=== PATIENT | female | born 1985 | race Caucasian/White ===

== ENCOUNTER 2020-07-27 14:38 | Outpatient (CLI) | payer OTHER ==
[2020-07-28 01:49] LABS: SARS-CoV-2 PCR by NAA Not Detected (NotDetected)
== END 2020-07-27 14:39 | disposition home or self-care (01) ==
LOC: CSHLAB 14:38
PROVIDERS: ATTEND Obstetrics & Gynecology
DX: Z20.822 Contact with and (suspected) exposure to COVID-19 (principal)
CPT/HCPCS: 87635; U0003; U0005

== ENCOUNTER 2020-07-28 05:28 | Observation (INO) | payer OTHER ==
[2020-07-28] MEDS ORDERED: Acetaminophen 500 MG TAB PO PRN (05:46)
[2020-07-28] MEDS ORDERED: HYDROcodone/Acetaminophen 5/325 mg Tablet PO PRN ×2 (05:46)
[2020-07-28] MEDS ORDERED: Lidocaine 1% (PF) 30 ML VIAL SC PRN (05:46)
[2020-07-28] MEDS ORDERED: Promethazine HCl 25 MG/ML VIAL IM PRN (05:46)
[2020-07-28] MEDS ORDERED: Ibuprofen 800 MG TAB PO PRN (05:46)
[2020-07-28] MEDS ORDERED: Ondansetron PF 4 MG/2 ML Vial IVP PRN (05:46)
[2020-07-28 06:03] VITALS: BMI 29.2
[2020-07-28] MEDS ORDERED: NS w/ Oxytocin 30 units 500 ML IVPB PRN (06:11)
[2020-07-28 07:02] LABS: Hemoglobin 11.4 g/dL (12.0-15.5); Mean Corpuscular HGB CONC 35.1 g/dL (32.0-36.0); Mean Corpuscular Hemoglobin 32.2 pg (27.0-33.0); Mean Corpuscular Volume 91.8 fl (81.6-98.3); Mean Platelet Volume 9.6 fl (7.4-10.4); Platelet Count 215 10x3/uL (150-450); RBC Distribution Width 13.1 % (11.5-14.5); Red Blood Cell (RBC) Count 3.54 10x6/uL (3.90-5.03); White Blood Cell (WBC) Count 7.4 10x3/uL (3.5-10.5)
[2020-07-28] MEDS: Misoprostol 200 MCG TAB VAG SCH ×3 (07:52→14:28)
[2020-07-28] MEDS: Butorphanol Tartrate 1 MG/ML VIAL SLOW IVP PRN ×2 (13:15→15:02)
[2020-07-28] MEDS ORDERED: Misoprostol 200 MCG TAB ONE (14:16)
== END 2020-07-28 20:43 | disposition home or self-care (01) ==
LOC: INTOOBSV 05:28 → CSHLD 05:28
PROVIDERS: ADMIT Obstetrics & Gynecology; ATTEND Obstetrics & Gynecology
DX: O02.1 Missed abortion (principal); Z3A.15 15 weeks gestation of pregnancy
CPT/HCPCS: 85027; 86850; 86900; 86901; 88300; 88305; 96374; 96375; G0378; J0595; J2590

== ENCOUNTER 2021-08-27 12:22 | Outpatient (CLI) | payer BC ==
[2021-08-28 12:35] LABS: SARS-CoV-2 PCR by NAA Not Detected (NotDetected)
== END 2021-08-27 12:23 | disposition home or self-care (01) ==
LOC: CSHLAB 12:22
PROVIDERS: ATTEND Obstetrics & Gynecology
DX: Z20.822 Contact with and (suspected) exposure to COVID-19 (principal)
CPT/HCPCS: U0003; U0005

== ENCOUNTER 2021-08-29 05:57 | Day surgery (SDC) | payer BC ==
[2021-08-29 06:38] VITALS: BMI 32.8
[2021-08-29] MEDS ORDERED: Mineral Oil ENEMA ONE (06:50)
[2021-08-29] MEDS ORDERED: Terbutaline Sulfate 1 MG/ML VIAL ONE (06:50)
[2021-08-29 07:58] LABS: Hemoglobin 10.6 g/dL (12.0-15.5); Mean Corpuscular HGB CONC 33.8 g/dL (32.0-36.0); Mean Corpuscular Hemoglobin 30.1 pg (27.0-33.0); Mean Corpuscular Volume 89.2 fl (81.6-98.3); Mean Platelet Volume 11.5 fl (7.4-10.4); Platelet Count 154 10x3/uL (150-450); RBC Distribution Width 15.7 % (11.5-14.5); Red Blood Cell (RBC) Count 3.52 10x6/uL (3.90-5.03); White Blood Cell (WBC) Count 6.3 10x3/uL (3.5-10.5)
[2021-08-29] MEDS ORDERED: Terbutaline Sulfate 1 MG/ML VIAL SC SCH (08:45)
== END 2021-08-29 10:25 | disposition home health service (06) ==
LOC: CSHLD/OP 05:57
PROVIDERS: ATTEND Obstetrics & Gynecology
PROC: 10S0XZZ Reposition Products of Conception, External Approach (ICD-10-PCS; principal; 2021-08-29)
DX: O32.1XX0 Maternal care for breech presentation, not applicable or unspecified (principal); O09.523 Supervision of elderly multigravida, third trimester; Z3A.37 37 weeks gestation of pregnancy
CPT/HCPCS: 59025; 59412; 76815; 85027; 86850; 86900; 86901; 96372; 99283; J3105

== ENCOUNTER 2021-09-14 09:04 | Outpatient (CLI) | payer BC ==
[2021-09-14 21:28] LABS: SARS-CoV-2 PCR by NAA Not Detected (NotDetected)
== END 2021-09-14 09:05 | disposition home or self-care (01) ==
LOC: CSHLAB 09:04
PROVIDERS: ATTEND Obstetrics & Gynecology
DX: Z20.822 Contact with and (suspected) exposure to COVID-19 (principal)
CPT/HCPCS: U0003; U0005

== ENCOUNTER 2021-09-18 05:30 | Inpatient (IN) | payer BC ==
[2021-09-18] MEDS ORDERED: Ibuprofen 800 MG TAB PO PRN (06:59)
[2021-09-18] MEDS ORDERED: Butorphanol Tartrate 1 MG/ML VIAL SLOW IVP PRN (06:59)
[2021-09-18] MEDS ORDERED: hydrALAZINE 20 MG/ML VIAL SLOW IVP PRN ×2 (06:59→18:38)
[2021-09-18] MEDS ORDERED: Ondansetron PF 4 MG/2 ML Vial IVP PRN ×2 (06:59→18:38)
[2021-09-18] MEDS ORDERED: HYDROcodone/Acetaminophen 5/325 mg Tablet PO PRN ×4 (06:59→18:38)
[2021-09-18] MEDS ORDERED: NS w/ Oxytocin 30 units 500 ML IV SCH ×3 (06:59→18:38)
[2021-09-18] MEDS ORDERED: Lidocaine 1% (PF) 30 ML VIAL SC PRN (06:59)
[2021-09-18] MEDS ORDERED: Promethazine HCl 25 MG/ML VIAL IM PRN (06:59)
[2021-09-18 07:02] VITALS: BMI 33.6
[2021-09-18] MEDS: Lactated Ringer's 1,000 ML IV SCH (07:34)
[2021-09-18 07:53] LABS: Hemoglobin 11.6 g/dL (12.0-15.5); Mean Corpuscular HGB CONC 33.8 g/dL (32.0-36.0); Mean Corpuscular Hemoglobin 30.4 pg (27.0-33.0); Platelet Count 156 10x3/uL (150-450); RBC Distribution Width 16.3 % (11.5-14.5); Red Blood Cell (RBC) Count 3.81 10x6/uL (3.90-5.03); White Blood Cell (WBC) Count 8.1 10x3/uL (3.5-10.5)
[2021-09-18] MEDS ORDERED: Bupivacaine 0.25% HCL 30 ML VIAL ONE (08:00)
[2021-09-18 08:24] LABS: Hep B Surf Ag Non-Reactive S/CO (NonReactive); Syphilis Antibody Nonreactive (Nonreactive); Syphilis Antibody Index 0.05 S/CO (<1.00 Non-Reactive)
[2021-09-18 08:28] LABS: HBSAg Index 0.18 S/CO (0-0.99)
[2021-09-18] MEDS ORDERED: Fentanyl 2 mcg/Bup 0.1% Cadd 100 ML ONE (12:13)
[2021-09-18 16:31] LABS: RapidComm Collect By CBN
[2021-09-18 16:32] LABS: RapidComm Collect By CBN; pH (Cord, venous) 7.332 (7.250-7.350)
[2021-09-18] MEDS ORDERED: Preparation H Ointment 28 GM TUBE PR PRN (18:38)
[2021-09-18] MEDS ORDERED: Bisacodyl 10 MG SUPP PR PRN (18:38)
[2021-09-18] MEDS ORDERED: diphenhydrAMINE 25 MG CAP PO PRN (18:38)
[2021-09-18] MEDS ORDERED: Benzocaine-Menthol 82.5 ML CAN TOP PRN (18:38)
[2021-09-18] MEDS ORDERED: Boostrix 0.5 ML (Tdap) VIAL IM ONE (18:38)
[2021-09-18] MEDS ORDERED: Lanolin Ointment 7 GM TUBE TOP PRN (18:38)
[2021-09-18] MEDS ORDERED: Milk Of Magnesia 30 ML UDCUP PO PRN (18:38)
[2021-09-18] MEDS ORDERED: Ferrous Sulfate 325 MG TAB PO SCH (18:45)
[2021-09-18] MEDS: Ibuprofen 800 MG TAB PO SCH (21:23)
[2021-09-18] MEDS: Docusate 100 MG CAP PO SCH (21:24)
[2021-09-19] MEDS: Lactated Ringer's 1,000 ML IV SCH (02:01)
[2021-09-19] MEDS: Ibuprofen 800 MG TAB PO SCH ×2 (06:11→13:25)
[2021-09-19] MEDS: Ferrous Sulfate 325 MG TAB PO SCH ×2 (08:02→16:08)
[2021-09-19] MEDS: Docusate 100 MG CAP PO SCH (08:57)
[2021-09-19] MEDS ORDERED: Prenatal Vitamin 1 TAB PO SCH (09:00)
[2021-09-19 11:51] VITALS: TEMP 97.8
[2021-09-19 16:09] VITALS: BP 122/70
== END 2021-09-19 18:25 | disposition home or self-care (01) | DRG 806 ==
LOC: CSHLD 06:16 → CSHPP 18:30
PROVIDERS: ADMIT Obstetrics & Gynecology; ATTEND Obstetrics & Gynecology
PROC: 10E0XZZ Delivery of Products of Conception, External Approach (ICD-10-PCS; principal; 2021-09-18)
PROC: 0UQG7ZZ Repair Vagina, Via Natural or Artificial Opening (ICD-10-PCS; 2021-09-18)
PROC: 10907ZC Drainage of Amniotic Fluid, Therapeutic from Products of Conception, Via Natural or Artificial Opening (ICD-10-PCS; 2021-09-18)
DX: O66.0 Obstructed labor due to shoulder dystocia (principal); O71.4 Obstetric high vaginal laceration alone; Z37.0 Single live birth; Z3A.40 40 weeks gestation of pregnancy
CPT/HCPCS: 36415; 51702; 82805; 85027; 86780; 86850; 86900; 86901; 87340; J2405; J2590; J7120; S0020

== ENCOUNTER 2024-02-13 10:24 | Inpatient (IN) | payer BC ==
[2024-02-13 11:17] VITALS: BMI 30.9
[2024-02-13] MEDS ORDERED: Ondansetron PF 4 MG/2 ML Vial IVP PRN (12:10)
[2024-02-13] MEDS ORDERED: Promethazine HCl 25 MG/ML VIAL IM PRN (12:10)
[2024-02-13] MEDS ORDERED: Acetaminophen 500 MG TAB PO PRN (12:10)
[2024-02-13] MEDS ORDERED: Zolpidem Tartrate 5 MG TAB PO PRN (12:10)
[2024-02-13] MEDS ORDERED: hydrALAZINE 20 MG/ML VIAL SLOW IVP PRN (12:10)
[2024-02-13] MEDS ORDERED: Docusate 100 MG CAP PO PRN (12:10)
[2024-02-13] MEDS ORDERED: Oxytocin 30 units/NS 500 ML 500 ML IV SCH (12:15)
[2024-02-13] MEDS: Betamet Acet/Betamet Na Ph 30 MG/5 ML VIAL IM SCH (12:29)
[2024-02-13] MEDS: Lactated Ringer's 1,000 ML IV SCH ×2 (12:32→14:00)
[2024-02-14] MEDS ORDERED: Prenatal Vitamin 1 TAB PO SCH (09:00)
[2024-02-14] MEDS: Levothyroxine Sodium 50 MCG TAB PO SCH (11:59)
== END 2024-02-14 13:09 | disposition home health service (06) | DRG 833 ==
LOC: CSHLD 10:24
PROVIDERS: ADMIT Student in an Organized Health Care Education/Training Program; ATTEND Student in an Organized Health Care Education/Training Program
DX: O41.03X0 Oligohydramnios, third trimester, not applicable or unspecified (principal); Z3A.33 33 weeks gestation of pregnancy; O99.283 Endocrine, nutritional and metabolic diseases complicating pregnancy, third trimester; E03.9 Hypothyroidism, unspecified; Z79.890 Hormone replacement therapy; Z79.899 Other long term (current) drug therapy
CPT/HCPCS: 76819; 99285; J0702; J7120

== ENCOUNTER 2024-02-26 20:25 | Day surgery (SDC) | payer BC ==
[2024-02-26] MEDS ORDERED: hydrALAZINE 20 MG/ML VIAL SLOW IVP PRN (21:14)
== END 2024-02-27 00:15 | disposition home or self-care (01) ==
LOC: CSHLD/OP 20:25
PROVIDERS: ATTEND Obstetrics & Gynecology
DX: O99.891 Other specified diseases and conditions complicating pregnancy (principal); R10.2 Pelvic and perineal pain; O99.283 Endocrine, nutritional and metabolic diseases complicating pregnancy, third trimester; E03.9 Hypothyroidism, unspecified; O41.03X0 Oligohydramnios, third trimester, not applicable or unspecified; O09.523 Supervision of elderly multigravida, third trimester; Z79.890 Hormone replacement therapy; Z79.82 Long term (current) use of aspirin; Z79.899 Other long term (current) drug therapy; Z3A.35 35 weeks gestation of pregnancy
CPT/HCPCS: 76819; 99282

== ENCOUNTER 2024-03-08 05:54 | Inpatient (IN) | payer BC ==
[2024-03-08 07:48] VITALS: BMI 31.8
[2024-03-08] MEDS ORDERED: hydrALAZINE 20 MG/ML VIAL SLOW IVP PRN ×2 (07:57→21:16)
[2024-03-08] MEDS ORDERED: Lidocaine 1% (PF) 30 ML VIAL SC PRN (07:57)
[2024-03-08] MEDS ORDERED: HYDROcodone/Acetaminophen 5/325 mg Tablet PO PRN ×4 (07:57→21:16)
[2024-03-08] MEDS ORDERED: Ondansetron PF 4 MG/2 ML Vial IVP PRN ×3 (07:57→21:16)
[2024-03-08] MEDS ORDERED: Ibuprofen 800 MG TAB PO PRN (07:57)
[2024-03-08] MEDS ORDERED: Promethazine HCl 25 MG/ML VIAL IM PRN ×2 (07:57→12:02)
[2024-03-08] MEDS ORDERED: Oxytocin 30 units/NS 500 ML 500 ML IV SCH ×3 (08:00→21:30)
[2024-03-08] MEDS ORDERED: Lactated Ringer's 1,000 ML IV SCH (08:00)
[2024-03-08] MEDS ORDERED: Bupivacaine 0.25% HCL 30 ML VIAL ONE (08:00)
[2024-03-08] MEDS: Oxytocin 30 units/NS 500 ML 500 ML IV SCH (08:16)
[2024-03-08 08:42] LABS: Hematocrit 33.7 % (34.9-44.5); Hemoglobin 11.5 g/dL (12.0-15.5); Mean Corpuscular HGB CONC 34.1 g/dL (32.0-36.0); Mean Corpuscular Hemoglobin 31.9 pg (27.0-33.0); Mean Corpuscular Volume 93.6 fL (81.6-98.3); Mean Platelet Volume 11.5 fL (7.4-10.4); Platelet Count 183 10x3/uL (150-450); RBC Distribution Width 13.8 % (11.5-14.5); White Blood Cell (WBC) Count 9.2 10x3/uL (3.5-10.5)
[2024-03-08 08:54] LABS: HBsAg Index 0.16 S/CO (0-0.99); HIV (1/2) Antibody/Antigen Non-Reactive (NonReactive); HIV 1/2 INDEX 0.06 S/CO (<1.00); Hep B Surf Ag - L&D Non-Reactive S/CO (NonReactive); Syphilis Antibody Nonreactive (Nonreactive); Syphilis Antibody Index 0.05 S/CO (<1.00 Non-Reactive)
[2024-03-08] MEDS: fentaNYL/Ropivacaine Epidural 100 ML ONE (11:51)
[2024-03-08] MEDS ORDERED: ePHEDrine Sulfate 50 MG/10 ML VIAL SLOW IVP PRN (12:02)
[2024-03-08] MEDS ORDERED: Lactated Ringer's 500 ML IV PRN (12:02)
[2024-03-08] MEDS ORDERED: diphenhydrAMINE 50 MG/ML VIAL IVP PRN (12:02)
[2024-03-08] MEDS ORDERED: Acetaminophen 325 MG TAB PO PRN (12:02)
[2024-03-08] MEDS ORDERED: Naloxone HCl 0.4 mg/ml Vial IVP PRN ×2 (12:02)
[2024-03-08] MEDS ORDERED: Moisturizing Cream (Eucerin) 113 GM JAR TOP PRN (12:02)
[2024-03-08] MEDS ORDERED: Communication Order-Pharmacy FS SCH (12:15)
[2024-03-08] MEDS ORDERED: fentaNYL 2 mcg/Ropivacaine 0.2% Epidural 100 ML CADD EPIDURAL SCH (12:15)
[2024-03-08] MEDS ORDERED: diphenhydrAMINE 25 MG CAP PO PRN (21:16)
[2024-03-08] MEDS ORDERED: Lanolin Ointment 7 GM TUBE TOP PRN (21:16)
[2024-03-08] MEDS ORDERED: Benzocaine-Menthol 82.5 ML CAN TOP PRN (21:16)
[2024-03-08] MEDS ORDERED: Boostrix 0.5 ML (Tdap) VIAL (>/=7 yrs of age) IM ONE (21:16)
[2024-03-08] MEDS ORDERED: Preparation H Ointment 28 GM TUBE PR PRN (21:16)
[2024-03-08] MEDS ORDERED: Milk Of Magnesia 30 ML UDCUP PO PRN (21:16)
[2024-03-08] MEDS ORDERED: Bisacodyl 10 MG SUPP PR PRN (21:16)
[2024-03-08] MEDS: Docusate 100 MG CAP PO SCH (22:04)
[2024-03-08] MEDS: Ibuprofen 800 MG TAB PO SCH (22:04)
[2024-03-09] MEDS: Ferrous Sulfate 325 MG TAB PO SCH (07:16)
[2024-03-09] MEDS: Prenatal Vitamin 1 TAB PO SCH (08:04)
[2024-03-09] MEDS: Docusate 100 MG CAP PO SCH (08:04)
[2024-03-10 07:31] VITALS: BP 119/78; TEMP 97.8
== END 2024-03-10 13:10 | disposition home or self-care (01) | DRG 807 ==
LOC: CSHLD 05:54 → CSHPP 21:00
PROVIDERS: ADMIT Obstetrics & Gynecology; ATTEND Obstetrics & Gynecology
PROC: 10E0XZZ Delivery of Products of Conception, External Approach (ICD-10-PCS; principal; 2024-03-08)
PROC: 3E033VJ Introduction of Other Hormone into Peripheral Vein, Percutaneous Approach (ICD-10-PCS; 2024-03-08)
DX: O41.03X0 Oligohydramnios, third trimester, not applicable or unspecified (principal); Z37.0 Single live birth; Z3A.37 37 weeks gestation of pregnancy
CPT/HCPCS: 51702; 85027; 86780; 86850; 86900; 86901; 87340; 87389; J0665; J2590